=== PATIENT | female | born 2000 | race Caucasian/White ===

== ENCOUNTER 2022-07-09 11:38 | Emergency (ER) | payer OTHER ==
[~2022-07-09 11:38] MED LIST: ZOFRAN8 MG PO
[2022-07-09 12:11] LABS: BASOPHIL 0.5 % (0-2); EOSINOPHIL 0.6 % (0-5); HCT 40.8 % (37.0-47.0); HGB 13.5 g/dl (12.5-16.0); LYMPHOCYTE 25.4 % (15-48); MCHC 33.1 g/dL (32.0-36.0); MCV 90.7 fL (78.0-100.0); MONOCYTE 6.9 % (0-12); MPV 10.2 fL (6.0-9.5); NEUTROPHIL 66.5 % (41-80); NRBC 0; PLT 266 K/uL (150-400); RDW 12.8 % (11.5-14.0); WBC 8.3 K/uL (4.0-10.5)
[2022-07-09 12:18] LABS: INR 1.02 (0.9-1.2); PROTHROMBIN TIME 13.1 SECONDS (11.9-13.9); PTT 29.5 SECONDS (24.9-34.6)
[2022-07-09 12:32] LABS: ALBUMIN 3.6 g/dL (3.4-5.0); ALKALINE PHOSHATASE 64 U/L (46-116); ALT 31 U/L (14-59); AST 15 U/L (15-37); BILIRUBIN - TOTAL 0.5 mg/dL (0.2-1.0); BUN 10 mg/dL (7-18); BUN/CREAT RATIO (CALC) 15.4 RATIO; CHLORIDE 102 mmol/L (98-107); CO2 (BICARBONATE) 25 mmol/L (21-32); CREATININE 0.65 mg/dL (0.51-0.95); GLOBULIN (CALCULATION) 3.9 g/dL; GLUCOSE 91 mg/dL (74-106); POTASSIUM 3.7 mmol/L (3.5-5.1); TOTAL PROTEIN 7.5 g/dL (6.4-8.2)
== END 2022-07-09 14:45 | disposition home or self-care (01) ==
LOC: FER 11:38
PROVIDERS: Emergency Medicine
DX: O99.891 Other specified diseases and conditions complicating pregnancy (principal); O13.1 Gestational [pregnancy-induced] hypertension without significant proteinuria, first trimester; R07.89 Other chest pain; Z3A.01 Less than 8 weeks gestation of pregnancy; Z28.310 Unvaccinated for COVID-19
CPT/HCPCS: 36415; 71045; 80053; 84484; 85025; 85610; 85730; 93005